=== PATIENT | female | born 1945 | race Caucasian/White ===

== ENCOUNTER 2018-02-22 08:51 | Day surgery (SDC) | payer MEDICARE, OTHER ==
[2018-02-21 14:28] VITALS: BMI 25.7
[2018-02-22 09:50] LABS: #Eosinphils 0.1 thou/uL (0.0-0.7); #Lymphocytes 1.2 thou/uL (1.20-3.40); #Monocytes 0.5 thou/uL (0.11-0.59); #Neutrophils 2.7 thou/uL (1.40-6.50); %Basophils 0.3 % (0.0-1.0); %Eosinophils 2.5 % (0.0-10.0); %Lymphocytes 25.4 % (21.0-51.0); %Neutrophils 60.7 % (42.0-75.0); Hemoglobin 13.2 g/dL (12.0-16.0); Mean Corpuscular Hemoglobin 29.9 pg (27.0-31.0); Mean Corpuscular Volume 87.9 fL (78.0-98.0); Mean Platelet Volume 7.4 fL (7.4-10.4); Platelet Count 246 thou/uL (130-400); RBC Distribution Width 12.6 % (11.5-14.5); Red Blood Cell (RBC) Count 4.42 mill/uL (4.20-5.40); White Blood Cell (WBC) Count 4.5 thou/uL (4.8-10.8)
[2018-02-22] MEDS ORDERED: CEFAZOLIN 2 GM/50 ML BAG ONE (10:55)
[2018-02-22] MEDS ORDERED: Bupivacaine PF 0.5% 30 ML VIAL ONE (11:52)
[2018-02-22] MEDS ORDERED: Bacitracin Zinc Ointment 30 gm TUBE ONE (11:52)
[2018-02-22] MEDS ORDERED: Betamet Acet/Betamet Na Ph 30 MG/5 ML VIAL ONE (11:52)
[2018-02-22] MEDS ORDERED: Fentanyl 100 MCG/2 ML VIAL ONE (12:40)
[2018-02-22] MEDS ORDERED: Famotidine/PF 20 mg/2ml Vial ONE (12:40)
[2018-02-22] MEDS ORDERED: Ketorolac Tromethamine 30 MG/ML VIAL ONE (13:20)
--- NOTE | 2018-02-24 01:31 | OP ---
DATE OF PROCEDURE: 02/22/2018 PREOPERATIVE DIAGNOSIS: Giant cell tumor, left middle finger, 6 mm. POSTOPERATIVE DIAGNOSIS: Inclusion cyst, left middle finger, 6 mm. PROCEDURE PERFORMED: Inclusion cyst, 6 mm, left middle finger excisional biopsy/removal. COMPLICATIONS: None. TOURNIQUET TIME: 7 minutes with a Riley type tourniquet effect. BLOOD LOSS: 2 mL, injectable. ANESTHETIC: Injectable only which was a total of 12 mL 0.5% Marcaine metacarpophalangeal joint level given before coming into the room, having approximately 15 minutes to take before surgery initiated. INDICATIONS: Mass initially with pain, no pain afterwards. No infection. DESCRIPTION OF PROCEDURE: After successful anesthesia as listed above, the limb was prepped and draped. Time-out was accomplished appropriately. A long quarter-inch Henrry drain was then used to first exsanguinate the limb out to the level of the base of the of the proximal phalanx, and then it was tied x1 and held with a small Crile clamp. We then made a 15 mm incision, 6 mm on either side of the mass, carried through skin and subcutaneous tissue radially based in a zigzag Kelsey fashion. We then saw the mass, was soft, spongiform, and had a small cup leading into the dermis in the center, which is indicative of inclusion cyst. We removed the cyst with the sharp dissection using retraction from the cyst and an 11 blade knife. At the area where the suction opening was found, we ellipsed out the skin to prevent recurrence. We released the tourniquet, sent the mass to the pathologist and then obtained hemostasis. We closed the wound, and the small ellipse opening with interrupted 4-0 nylon simple pattern. The patient then had a bulky dressing applied, soft tissue only with a wraparound the wrist, covered with loosely with Coban and left the operating room without evidence of anesthetic or operative complication. Job ID: [id number]
== END 2018-02-22 12:55 | disposition home or self-care (01) ==
LOC: SDC 08:51
PROVIDERS: ATTEND Orthopaedic Surgery Hand Surgery
PROC: 0HBGXZZ Excision of Left Hand Skin, External Approach (ICD-10-PCS; principal; 2018-02-22)
DX: L72.0 Epidermal cyst (principal); Z79.82 Long term (current) use of aspirin; Z79.899 Other long term (current) drug therapy; Z88.5 Allergy status to narcotic agent; Z88.7 Allergy status to serum and vaccine; Z96.652 Presence of left artificial knee joint
CPT/HCPCS: 85025; 85652; 88304; 99152; 99153; J0131; J0702; J1885; J3010; S0020; S0028